=== PATIENT | male | born 1965 | race Caucasian/White ===

== ENCOUNTER 2017-06-23 09:39 | Inpatient (IN) | payer MEDICAID, OTHER ==
[~2017-06-23] VITALS: Ht 175.3 cm; Wt 242.0 kg
[2017-06-23 09:52] LABS: GLUCOSE,POINT OF CARE 300 MG/DL (70-110)
[2017-06-23] MEDS ORDERED: BENA20 PO (10:02)
[2017-06-23] MEDS ORDERED: METF500T4 PO (10:02)
[2017-06-23] MEDS ORDERED: IBUP-2070 PO (10:02)
[2017-06-23] MEDS ORDERED: HYDR25TA84 PO (10:02)
[2017-06-23] MEDS ORDERED: CARV12 PO (10:02)
[2017-06-23] MEDS ORDERED: SIMV-260 PO (10:02)
[2017-06-23] MEDS ORDERED: GABA-531 PO (10:02)
[2017-06-23] MEDS ORDERED: BENAZEPRIL HCL 10 MG TABLET PO ONE (10:45)
[2017-06-23] MEDS ORDERED: MetFORMIN HCL 500 MG TABLET PO ONE (10:45)
[2017-06-23] MEDS ORDERED: ACETAMINOPHEN 500 MG TABLET PO ONE (10:45)
[2017-06-23 10:51] LABS: BASOPHILS # (AUTO) 0.03 K/uL (0.00-0.20); BASOPHILS % (AUTO) 0.3 % (0.0-2.0); EOSINOPHILS # (AUTO) 0.18 K/uL (0.00-0.70); EOSINOPHILS % (AUTO) 1.83 % (1.0-6.0); HEMATOCRIT 37.7 % (41-53); HEMOGLOBIN 12.9 g/dL (13.5-17.5); LYMPHOCYTES # (AUTO) 1.6 K/uL (1.0-4.8); LYMPHOCYTES % (AUTO) 16.1 % (22.0-44.0); MEAN CORPUSCULAR HGB CONC 34.3 G/dL (31.0-37.0); MEAN CORPUSCULAR VOLUME 96 fL (80-100); MONOCYTES # (AUTO) 0.7 K/uL (0.1-1.0); MONOCYTES % (AUTO) 6.9 % (2.0-9.0); NEUTROPHILS # (AUTO) 7.2 K/uL (1.8-7.7); NEUTROPHILS % (AUTO) 74.9 % (40.0-70.0); PLATELET COUNT (AUTO) 232 K/uL (150-450); RED BLOOD CELL COUNT(AUTO) 3.92 MIL/uL (4.50-5.90); RED CELL DISTRIBUTION WIDTH 13.8 % (11.5-14.5); WHITE BLOOD COUNT (AUTO) 9.7 K/uL (4.5-11.0)
[2017-06-23] MEDS ORDERED: BENAZEPRIL HCL 20 MG TABLET PO ONE (11:00)
[2017-06-23 11:02] LABS: ANION GAP 5 mmol/L (8-16); CARBON DIOXIDE 28 mmol/L (22-29); CHLORIDE 100 mmol/L (98-107); CREATININE 1.01 mg/dL (0.60-1.30); GLOMERULAR FILTR. RATE CALC > 60 mL/min (>60); POTASSIUM 4.7 mmol/L (3.5-5.1); SODIUM SERUM 133 mmol/L (136-145); UREA NITROGEN, BLOOD 20 mg/dL (7-18)
[2017-06-23 11:10] LABS: ALANINE AMINOTRANSFERASE 23 U/L (12-78); ALBUMIN 2.9 g/dL (3.4-5.0); ASPARTATE AMINOTRANSFERASE 11 U/L (15-37); BILIRUBIN,TOTAL 0.2 mg/dL (0.1-1.0); TOTAL PROTEIN, SERUM 6.2 g/dL (6.4-8.2)
[2017-06-23] MEDS ORDERED: HALOPERIDOL 5 MG TABLET PO PRN (11:15)
[2017-06-23] MEDS ORDERED: CARVEDILOL 3.125 MG TABLET PO ONE (12:00)
[2017-06-23] MEDS ORDERED: SIMVASTATIN 20 MG TABLET PO ONE (12:00)
[2017-06-23] MEDS ORDERED: HydrALAZINE HCL 25 MG TABLET PO ONE (12:00)
[2017-06-23 14:42] VITALS: BP 109/63
[2017-06-23] MEDS ORDERED: GLUCAGON,HUMAN RECOMBINANT 1 MG VIAL IM PRN (14:45)
[2017-06-23 14:53] LABS: GLUCOSE,POINT OF CARE 243 MG/DL (70-110)
[2017-06-23] MEDS ORDERED: INSULIN ASPART 100 UNITS/ML SQ ONE (15:00)
[2017-06-23 16:27] VITALS: BP 116/71
[2017-06-23 16:52] LABS: GLUCOSE,POINT OF CARE 285 MG/DL (70-110)
[2017-06-23] MEDS: INSULIN ASPART 100 UNITS/ML SQ PRN ×2 (16:59→20:56)
[2017-06-23 17:22] LABS: GLUCOSE,POINT OF CARE 189 MG/DL (70-110)
[2017-06-23] MEDS: GABAPENTIN 300 MG CAPSULE PO SCH (17:22)
[2017-06-23] MEDS ORDERED: MIRTAZAPINE 15 MG TABLET PO SCH (21:00)
[2017-06-23 21:12] LABS: GLUCOSE,POINT OF CARE 207 MG/DL (70-110)
[2017-06-24] MEDS: INSULIN ASPART 100 UNITS/ML SQ PRN ×4 (06:32→21:56)
[2017-06-24] MEDS: GABAPENTIN 300 MG CAPSULE PO SCH ×2 (09:00→17:07)
[2017-06-24 09:28] LABS: CHOL/HDL RATIO 4.8 (4.2-7.3)
[2017-06-24 10:02] LABS: GLUCOSE,POINT OF CARE 181 MG/DL (70-110)
[2017-06-24 10:28] VITALS: BP 147/90
[2017-06-24 16:32] VITALS: BP 142/87
[2017-06-24 16:52] LABS: GLUCOSE,POINT OF CARE 257 MG/DL (70-110)
[2017-06-24 16:52] LABS: GLUCOSE,POINT OF CARE 174 MG/DL (70-110)
[2017-06-24] MEDS: MIRTAZAPINE 30 MG TABLET PO SCH (21:18)
[2017-06-24 21:57] LABS: GLUCOSE,POINT OF CARE 304 MG/DL (70-110)
[2017-06-24] MEDS ORDERED: LOPERAMIDE HCL 2 MG CAPSULE PO PRN (23:00)
[2017-06-24] MEDS ORDERED: BENZOCAINE/MENTHOL LOZENGE MM PRN (23:00)
[2017-06-24] MEDS ORDERED: ALBUTEROL SULFATE HFA 90 MCG/PUFF 8 GM INHALER IH PRN (23:00)
[2017-06-24] MEDS ORDERED: MAGNESIUM HYDROXIDE SUSPENSION 30 ML UDCUP PO PRN (23:00)
[2017-06-24] MEDS ORDERED: BACITRACIN 28.4 GM OINTMENT TP PRN (23:00)
[2017-06-24] MEDS ORDERED: CloNIDine HCL 0.1 MG TABLET PO PRN (23:00)
[2017-06-24] MEDS ORDERED: ACETAMINOPHEN 325 MG TABLET PO PRN (23:00)
[2017-06-24] MEDS ORDERED: PETROLATUM,WHITE 71 GM JELLY TP PRN (23:00)
[2017-06-24] MEDS ORDERED: MAG HYDROX/AL HYDROX/SIMETH ES 30 ML SUSPENSION UDCUP PO PRN (23:00)
[2017-06-24] MEDS ORDERED: ONDANSETRON HCL 4 MG TABLET PO PRN (23:00)
[2017-06-25 06:30] VITALS: BP 156/98
[2017-06-25] MEDS: MetFORMIN HCL 500 MG TABLET PO SCH ×2 (06:43→17:19)
[2017-06-25] MEDS: LORazepam 2 MG TABLET PO PRN (06:46)
[2017-06-25] MEDS: INSULIN ASPART 100 UNITS/ML SQ PRN ×4 (06:52→21:23)
[2017-06-25 08:29] VITALS: BP 158/96
[2017-06-25] MEDS ORDERED: SODIUM CHLORIDE 1 GM TABLET PO ONE (09:30)
[2017-06-25] MEDS: GABAPENTIN 300 MG CAPSULE PO SCH ×2 (09:36→17:19)
[2017-06-25] MEDS: CARVEDILOL 12.5 MG TABLET PO SCH ×2 (09:36→17:19)
[2017-06-25] MEDS: BENAZEPRIL HCL 20 MG TABLET PO SCH (09:37)
[2017-06-25 11:38] LABS: GLUCOSE,POINT OF CARE 212 MG/DL (70-110)
[2017-06-25 11:38] LABS: GLUCOSE,POINT OF CARE 190 MG/DL (70-110)
[2017-06-25 16:10] VITALS: BP 148/91
[2017-06-25 16:42] LABS: GLUCOSE,POINT OF CARE 220 MG/DL (70-110)
[2017-06-25 21:02] LABS: GLUCOSE,POINT OF CARE 192 MG/DL (70-110)
[2017-06-25] MEDS: MIRTAZAPINE 30 MG TABLET PO SCH (21:10)
[2017-06-25] MEDS: SIMVASTATIN 20 MG TABLET PO SCH (21:10)
[2017-06-26 00:45] VITALS: BP 166/113
[2017-06-26] MEDS: ZOLPIDEM TARTRATE 10 MG TABLET PO PRN (00:47)
[2017-06-26 06:00] VITALS: BP 147/90
[2017-06-26] MEDS: MetFORMIN HCL 500 MG TABLET PO SCH ×2 (06:05→17:02)
[2017-06-26] MEDS: INSULIN ASPART 100 UNITS/ML SQ PRN ×4 (06:35→20:38)
[2017-06-26 08:10] VITALS: BP 150/83
[2017-06-26 08:46] LABS: SODIUM SERUM 137 mmol/L (136-145); UREA NITROGEN, BLOOD 20 mg/dL (7-18)
[2017-06-26] MEDS: GABAPENTIN 300 MG CAPSULE PO SCH ×2 (08:50→17:02)
[2017-06-26] MEDS: FISH OIL/OMEGA-3 FATTY ACIDS 500 MG CAPSULE PO SCH (08:50)
[2017-06-26] MEDS: CARVEDILOL 12.5 MG TABLET PO SCH ×2 (08:50→17:02)
[2017-06-26] MEDS: BENAZEPRIL HCL 20 MG TABLET PO SCH (08:50)
[2017-06-26] MEDS: LORazepam 2 MG TABLET PO PRN (11:56)
[2017-06-26 16:12] LABS: GLUCOSE,POINT OF CARE 239 MG/DL (70-110)
[2017-06-26 16:12] LABS: GLUCOSE,POINT OF CARE 277 MG/DL (70-110)
[2017-06-26 16:12] LABS: GLUCOSE,POINT OF CARE 195 MG/DL (70-110)
[2017-06-26 16:23] VITALS: BP 134/83
[2017-06-26] MEDS: MIRTAZAPINE 30 MG TABLET PO SCH (20:36)
[2017-06-26] MEDS: SIMVASTATIN 20 MG TABLET PO SCH (20:36)
[2017-06-26 20:37] LABS: GLUCOSE,POINT OF CARE 206 MG/DL (70-110)
[2017-06-27 00:05] VITALS: BP 120/60
[2017-06-27] MEDS: MetFORMIN HCL 500 MG TABLET PO SCH ×2 (06:46→16:35)
[2017-06-27 07:22] LABS: GLUCOSE,POINT OF CARE 239 MG/DL (70-110)
[2017-06-27] MEDS: INSULIN ASPART 100 UNITS/ML SQ PRN ×3 (07:24→17:20)
[2017-06-27 08:30] VITALS: BP 128/86
[2017-06-27] MEDS: BENAZEPRIL HCL 20 MG TABLET PO SCH (09:45)
[2017-06-27] MEDS: CARVEDILOL 12.5 MG TABLET PO SCH ×2 (09:45→16:35)
[2017-06-27] MEDS: GABAPENTIN 300 MG CAPSULE PO SCH ×2 (09:45→16:36)
[2017-06-27] MEDS: FISH OIL/OMEGA-3 FATTY ACIDS 500 MG CAPSULE PO SCH (09:45)
[2017-06-27] MEDS: LORazepam 2 MG TABLET PO PRN ×2 (09:46→16:36)
[2017-06-27 16:11] VITALS: BP 142/101
[2017-06-27 16:37] LABS: GLUCOSE COMMENT 1 Received Meds; GLUCOSE,POINT OF CARE 239 MG/DL (70-110)
[2017-06-27 16:37] LABS: GLUCOSE,POINT OF CARE 223 MG/DL (70-110)
[2017-06-27] MEDS: SIMVASTATIN 20 MG TABLET PO SCH (20:34)
[2017-06-27] MEDS: MIRTAZAPINE 30 MG TABLET PO SCH (20:34)
[2017-06-28 06:04] VITALS: BP 142/88
[2017-06-28] MEDS: MetFORMIN HCL 500 MG TABLET PO SCH ×2 (06:38→16:43)
[2017-06-28] MEDS: INSULIN ASPART 100 UNITS/ML SQ PRN ×4 (06:41→21:09)
[2017-06-28 06:43] LABS: GLUCOSE,POINT OF CARE 162 MG/DL (70-110)
[2017-06-28 08:02] VITALS: BP 129/81
[2017-06-28] MEDS: GABAPENTIN 300 MG CAPSULE PO SCH ×2 (08:54→16:43)
[2017-06-28] MEDS: CARVEDILOL 12.5 MG TABLET PO SCH ×2 (08:54→16:43)
[2017-06-28] MEDS: BENAZEPRIL HCL 20 MG TABLET PO SCH (08:54)
[2017-06-28] MEDS: FISH OIL/OMEGA-3 FATTY ACIDS 500 MG CAPSULE PO SCH (09:00)
[2017-06-28] MEDS: LORazepam 2 MG TABLET PO PRN (09:04)
[2017-06-28 11:12] LABS: GLUCOSE,POINT OF CARE 267 MG/DL (70-110)
[2017-06-28 17:03] LABS: GLUCOSE,POINT OF CARE 219 MG/DL (70-110)
[2017-06-28 17:56] VITALS: BP 115/84
[2017-06-28] MEDS: SIMVASTATIN 20 MG TABLET PO SCH (20:46)
[2017-06-28] MEDS: MIRTAZAPINE 30 MG TABLET PO SCH (20:46)
[2017-06-28 21:03] LABS: GLUCOSE,POINT OF CARE 218 MG/DL (70-110)
[2017-06-29 06:12] LABS: GLUCOSE COMMENT 1 Received Meds; GLUCOSE,POINT OF CARE 218 MG/DL (70-110)
[2017-06-29] MEDS: MetFORMIN HCL 500 MG TABLET PO SCH ×2 (06:12→16:14)
[2017-06-29 06:20] VITALS: BP 140/80
[2017-06-29] MEDS: INSULIN ASPART 100 UNITS/ML SQ PRN ×4 (06:57→20:12)
[2017-06-29 08:30] VITALS: BP 154/102
[2017-06-29] MEDS: GABAPENTIN 300 MG CAPSULE PO SCH ×2 (09:53→16:13)
[2017-06-29] MEDS: BENAZEPRIL HCL 20 MG TABLET PO SCH (09:53)
[2017-06-29] MEDS: FISH OIL/OMEGA-3 FATTY ACIDS 500 MG CAPSULE PO SCH (09:53)
[2017-06-29] MEDS: CARVEDILOL 12.5 MG TABLET PO SCH ×2 (09:53→16:14)
[2017-06-29 15:27] LABS: GLUCOSE,POINT OF CARE 227 MG/DL (70-110)
[2017-06-29 15:52] LABS: GLUCOSE COMMENT 1 Received Meds; GLUCOSE,POINT OF CARE 250 MG/DL (70-110)
[2017-06-29 16:29] VITALS: BP 120/80
[2017-06-29] MEDS: IBUPROFEN 600 MG TABLET PO PRN (18:03)
[2017-06-29 19:47] LABS: GLUCOSE COMMENT 1 Received Meds; GLUCOSE,POINT OF CARE 294 MG/DL (70-110)
[2017-06-29] MEDS: MIRTAZAPINE 30 MG TABLET PO SCH (20:05)
[2017-06-29] MEDS: SIMVASTATIN 20 MG TABLET PO SCH (20:05)
[2017-06-29] MEDS: ZOLPIDEM TARTRATE 10 MG TABLET PO PRN (20:47)
[2017-06-30] MEDS: MetFORMIN HCL 500 MG TABLET PO SCH ×2 (06:30→17:12)
[2017-06-30 06:32] LABS: GLUCOSE,POINT OF CARE 184 MG/DL (70-110)
[2017-06-30] MEDS: INSULIN ASPART 100 UNITS/ML SQ PRN ×4 (06:33→21:20)
[2017-06-30 06:59] VITALS: BP 140/83
[2017-06-30] MEDS: GABAPENTIN 300 MG CAPSULE PO SCH ×2 (08:22→17:12)
[2017-06-30] MEDS: CARVEDILOL 12.5 MG TABLET PO SCH ×2 (08:22→17:12)
[2017-06-30] MEDS: BENAZEPRIL HCL 20 MG TABLET PO SCH (08:22)
[2017-06-30] MEDS: FISH OIL/OMEGA-3 FATTY ACIDS 500 MG CAPSULE PO SCH (08:23)
[2017-06-30 08:39] VITALS: BP 150/97
[2017-06-30] MEDS: LORazepam 2 MG TABLET PO PRN (09:58)
[2017-06-30 16:37] VITALS: BP 135/86
[2017-06-30 17:03] LABS: GLUCOSE,POINT OF CARE 228 MG/DL (70-110)
[2017-06-30 17:07] LABS: GLUCOSE,POINT OF CARE 263 MG/DL (70-110)
[2017-06-30] MEDS: MIRTAZAPINE 30 MG TABLET PO SCH (20:10)
[2017-06-30] MEDS: SIMVASTATIN 20 MG TABLET PO SCH (20:10)
[2017-06-30 21:17] LABS: GLUCOSE,POINT OF CARE 252 MG/DL (70-110)
[2017-06-30] MEDS: INSULIN DETEMIR 100 UNITS/ML SQ SCH (21:21)
[2017-07-01 00:45] VITALS: BP 135/86
[2017-07-01] MEDS: MetFORMIN HCL 500 MG TABLET PO SCH ×2 (06:41→16:38)
[2017-07-01] MEDS: INSULIN ASPART 100 UNITS/ML SQ PRN ×4 (06:47→21:18)
[2017-07-01 06:48] LABS: GLUCOSE,POINT OF CARE 169 MG/DL (70-110)
[2017-07-01 08:06] VITALS: BP 144/102
[2017-07-01] MEDS: CARVEDILOL 12.5 MG TABLET PO SCH ×2 (08:38→16:38)
[2017-07-01] MEDS: FISH OIL/OMEGA-3 FATTY ACIDS 500 MG CAPSULE PO SCH (08:38)
[2017-07-01] MEDS: GABAPENTIN 300 MG CAPSULE PO SCH ×2 (08:38→16:38)
[2017-07-01 08:39] VITALS: BP 140/88
[2017-07-01] MEDS: IBUPROFEN 600 MG TABLET PO PRN (08:39)
[2017-07-01] MEDS: LORazepam 2 MG TABLET PO PRN ×2 (08:39→16:38)
[2017-07-01] MEDS: BENAZEPRIL HCL 20 MG TABLET PO SCH (08:39)
[2017-07-01 09:39] VITALS: BP 133/80
[2017-07-01 16:00] VITALS: BP 130/82
[2017-07-01 17:32] LABS: GLUCOSE,POINT OF CARE 288 MG/DL (70-110)
[2017-07-01 17:33] LABS: GLUCOSE,POINT OF CARE 225 MG/DL (70-110)
[2017-07-01 20:37] LABS: GLUCOSE,POINT OF CARE 186 MG/DL (70-110)
[2017-07-01] MEDS: SIMVASTATIN 20 MG TABLET PO SCH (21:10)
[2017-07-01] MEDS: ZOLPIDEM TARTRATE 10 MG TABLET PO PRN (21:10)
[2017-07-01] MEDS: MIRTAZAPINE 30 MG TABLET PO SCH (21:10)
[2017-07-01] MEDS: INSULIN DETEMIR 100 UNITS/ML SQ SCH (21:17)
[2017-07-02] MEDS: MetFORMIN HCL 500 MG TABLET PO SCH (06:00)
[2017-07-02 06:26] VITALS: BP 138/86
[2017-07-02 06:38] LABS: GLUCOSE,POINT OF CARE 180 MG/DL (70-110)
[2017-07-02] MEDS: INSULIN ASPART 100 UNITS/ML SQ PRN ×2 (06:48→11:09)
[2017-07-02] MEDS: LORazepam 2 MG TABLET PO PRN (07:15)
[2017-07-02] MEDS ORDERED: ALBU8HFA4 IH (08:10)
[2017-07-02] MEDS ORDERED: INSU100V12 SQ (08:10)
[2017-07-02] MEDS ORDERED: OMEG-135 PO (08:10)
[2017-07-02] MEDS ORDERED: MIRT30 PO (08:10)
[2017-07-02] MEDS: FISH OIL/OMEGA-3 FATTY ACIDS 500 MG CAPSULE PO SCH (08:31)
[2017-07-02] MEDS: BENAZEPRIL HCL 20 MG TABLET PO SCH (08:31)
[2017-07-02] MEDS: CARVEDILOL 12.5 MG TABLET PO SCH (08:31)
[2017-07-02] MEDS: GABAPENTIN 300 MG CAPSULE PO SCH (08:31)
[2017-07-02 08:32] VITALS: BP 147/90
[2017-07-02 11:07] LABS: GLUCOSE,POINT OF CARE 157 MG/DL (70-110)
== END 2017-07-02 13:35 | disposition home or self-care (01) | DRG 751 ==
LOC: EMS 09:42 → B2S 12:50
PROVIDERS: ADMIT Psychiatry & Neurology Psychiatry; ATTEND Psychiatry & Neurology Psychiatry
DX: F33.2 Major depressive disorder, recurrent severe without psychotic features (principal); E46 Unspecified protein-calorie malnutrition; E87.1 Hypo-osmolality and hyponatremia; E11.65 Type 2 diabetes mellitus with hyperglycemia; F15.20 Other stimulant dependence, uncomplicated; E83.51 Hypocalcemia; R45.851 Suicidal ideations; Z91.19 Patient's noncompliance with other medical treatment and regimen; E66.9 Obesity, unspecified; E78.5 Hyperlipidemia, unspecified; F12.90 Cannabis use, unspecified, uncomplicated; F41.9 Anxiety disorder, unspecified; I10 Essential (primary) hypertension; M16.12 Unilateral primary osteoarthritis, left hip; Z59.0 Homelessness; Z87.891 Personal history of nicotine dependence
CPT/HCPCS: 73503; 82306; 82962; 83036; 84295; 84520; 99285; G0480; J1815